=== PATIENT | female | born 1940 | race Caucasian/White ===

== ENCOUNTER 2016-08-12 13:48 | Outpatient (CLI) | payer OTHER ==
--- NOTE | 2016-08-12 17:13 | DIAGNOSTIC IMAGING REPORT ---
PROCEDURE: US ART LOWER EXT WITH BENIGNO-B/L INDICATION: CLAUDICATION TECHNIQUE: Color Doppler duplex imaging of the lower extremity arterial system was performed bilaterally. Pre and post exercise ABIs were acquired. COMPARISON: None. FINDINGS: The patient performed 50 toe raises RIGHT LOWER EXTREMITY: ABIs: Pre exercise posterior tibial: 190 Pre exercise dorsalis pedis: 190 Postexercise posterior tibial: 205 Postexercise dorsalis pedis: 200 VESSELS/ WAVEFORMS: Triphasic RIGHT LOWER EXTREMITY PEAK SYSTOLIC VELOCITIES: External iliac: 160.4 cm/second. Common femoral artery: 138.7 cm/second. Profunda femoral artery: 114.6 cm/second. Proximal superficial femoral artery: 108 point a cm/second. Mid superficial femoral artery: 112.3 cm/second. Distal superficial femoral artery: 106.5 cm/second. Popliteal artery: 74.5 cm/second. Proximal posterior tibial artery: 93.3 cm/second. Proximal anterior tibial artery: 110.4 cm/second. Distal posterior tibial artery: 89.7 cm/second. Dorsalis pedis artery: 79.9 cm/second. LEFT LOWER EXTREMITY: ABIs: Pre exercise posterior tibial: 200 Pre exercise dorsalis pedis: 190 Postexercise posterior tibial: 205 Postexercise dorsalis pedis: 210 VESSELS/ WAVEFORMS: Triphasic LEFT LOWER EXTREMITY PEAK SYSTOLIC VELOCITIES: External iliac: 105.6 cm/second. Common femoral artery: 149.1 cm/second. Profunda femoral artery: 79.9 cm/second. Proximal superficial femoral artery: 161.5 cm/second. Mid superficial femoral artery: 139.4 cm/second. Distal superficial femoral artery: 107.7 cm/second. Popliteal artery: 116.9 cm/second. Proximal posterior tibial artery: 120.4 cm/second. Proximal anterior tibial artery: 95.1 cm/second. Distal posterior tibial artery: 85.2 cm/second. Dorsalis pedis artery: 114.6 cm/second. IMPRESSION: 1. Normal, minimal plaque
== END 2016-08-12 23:00 ==
LOC: US SRH 13:48
DX: I70.213 Atherosclerosis of native arteries of extremities with intermittent claudication, bilateral legs (principal)

== ENCOUNTER 2016-11-01 23:05 | Inpatient (IN) | payer OTHER ==
[~2016-11-01] VITALS: Ht 172.7 cm; Wt 106.7 kg
--- NOTE | 2016-11-02 00:12 | DIAGNOSTIC IMAGING REPORT ---
PROCEDURE: XR ABD SERIES 2V ABD/1V CHEST INDICATION: CONSTIPATION TECHNIQUE: AP supine and upright views with PA view chest. COMPARISON: Compared to chest x-ray on 09/03/2015. FINDINGS: ABDOMEN: There is moderate distention of the right colon with probable subdiaphragmatic colonic interposition (versus free air). Soft tissues and osseous structures are normal. CHEST: Mild to moderate basilar atelectasis. Mid and upper lungs are clear. Heart and mediastinum are normal. Thorax is normal. IMPRESSION: 1. Moderate distention of the right colon with probable subdiaphragmatic colon interposition. Consider volvulus or subdiaphragmatic air (perforated viscus). 2. Mild to moderate bibasilar atelectasis. 3. Findings discussed with Dr. Argueta.
--- NOTE | 2016-11-02 00:47 | ED CLINICAL REPORT ---
Clinical Report - Physicians/Mid Levels [facility] [address] [place] [address] 11/01/2016 23:08 Patient: PURA WOODWARD Time Seen: 23:15. Arrived- By ambulance. Historian- patient, EMS personnel and family. HISTORY OF PRESENT ILLNESS Chief Complaint: ABDOMINAL PAIN. At its maximum, severity described as moderate. When seen in the E.D., severity described as moderate. Modifying factors- worsened by movement. Relieved by rest. It is described as "pain". No radiation. It is described as located in the right upper quadrant, epigastric area and left upper quadrant and in the upper abdomen. This started today and is still present. It was gradual in onset and has been waxing/waning. The patient has had nausea. No vomiting or diarrhea. Similar symptoms previously: None. Recent medical care: The patient was seen recently by a health care provider. Seen for other problems. Diagnosis: (recent hip surgery ([facility])). REVIEW OF SYSTEMS The patient has had constipation and back pain. No black stools, hematemesis, difficulty with urination, pain with urination or urinary frequency. No bloody stools, fever, headache, sore throat or blurred vision. No chest pain or difficulty breathing. Last bowel movement: yesterday. All systems otherwise negative, except as recorded above. PAST HISTORY Hypertension. SURGERY HX: Appendectomy. Dental surgery. Hysterectomy. Hiatal Hernia repair 2000 Bilateral hip surgery Upper extremity ORIF. SOCIAL HISTORY Never smoker. No drug use. ADDITIONAL NOTES The nursing notes have been reviewed. PHYSICAL EXAM Vital Signs: 11/01/2016 23:13 BP: 176/73. HR: 85. RR: 16. O2 saturation: 94%. Temp: 99.3 F. Appearance: Alert. Oriented X3. Patient in moderate distress. Eyes: Eyes normal inspection. No scleral icterus or pale conjunctivae. ENT: Pharynx normal. No pharyngeal erythema or tonsillar exudate. The mucous membranes are not dry. Neck: Normal inspection. Neck supple. CVS: Normal heart rate and rhythm. Cardiac murmur present. Pulses normal. Respiratory: No respiratory distress. Breath sounds normal. Chest nontender. Abdomen: Soft. Moderate tenderness in the upper abdomen, epigastric area and left upper quadrant. No Garcia's sign present. No mass. Back: Normal inspection. Skin: Skin warm and dry. Normal skin color. Normal skin turgor. Extremities: Extremities exhibit normal ROM. No calf tenderness. Neuro: Oriented X 3. No motor deficit. No sensory deficit. LABS, X-RAYS, AND EKG Chest X-ray: (IMPRESSION: 1. Moderate distention of the right colon with probable subdiaphragmatic colon interposition. Consider volvulus or subdiaphragmatic air (perforated viscus). 2. Mild to moderate bibasilar atelectasis. 3. Findings discussed with Dr. Argueta.). Views: PA. Technique: good. The X-rays were interpreted by the radiologist and contemporaneously by me. The X-rays were discussed with the radiologist (Dr. Forman). KUB: (IMPRESSION: 1. Moderate distention of the right colon with probable subdiaphragmatic colon interposition. Consider volvulus or subdiaphragmatic air (perforated viscus). 2. Mild to moderate bibasilar atelectasis. 3. Findings discussed with Dr. Argueta.). Views: two-view AP. Technique: good. The X-rays were interpreted by the radiologist and contemporaneously by me. The X-rays were discussed with the radiologist (Dr Forman). Abdominal CT: IMPRESSION: 1. Moderate inflammatory change of the body and tail the pancreas compatible with pancreatitis. 2. Associated local ileus and small amount of ascites. 3. 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 4. Mild sigmoid diverticulosis, but no evidence of diverticulitis. 5. Status post bilateral total hip prosthesis. 6. Status post hysterectomy. 7. Mild basilar atelectasis. Abdominal Sonogram: Multiple gallstones are present. Gallbladder wall thickening is present (3.8mm). No pericholecystic fluid or dilated common duct. The study was independently viewed by me and interpreted by the radiologist. The study was discussed with the radiologist (via tech). Laboratory Tests: CBC w Diff: (DEVAUGHN: 11/01/2016 23:20) ( MsgRcvd 11/01/2016 23:30) Final results Test Result Flag Units (Reference) WHITE BLOOD COUNT 11.5 K/uL (4.5-11.5) RED BLOOD COUNT 4.52 M/uL (4.00-5.20) HEMOGLOBIN 13.2 gm/dL (12.0-16.0) HEMATOCRIT 40.7 % (36.0-46.0) MEAN CELL VOLUME 90 fL (80-100) MEAN CORPUSCULAR HGB 29 pg (26-34) MEAN CORPUSCULAR HGB CONC 33 g/dL (31-37) RED CELL DISTRIBUTION WIDTH 13.5 % (11.6-14.8) PLATELET COUNT 345 K/uL (150-400) LYMPH % 15.3 L % (25-40) MONO % 3.1 % (3-14) GRANULOCYTE % 81.6 (53-90) BNP: (DEVAUGHN: 11/01/2016 23:20) ( [facility] 11/01/2016 23:47) Final results Test Result Flag Units (Reference) B-TYPE NATRIURETIC PEPTIDE 114 H pg/ml (5-100) Lipase: (DEVAUGHN: 11/01/2016 23:20) ( [facility] 11/01/2016 23:46) Final results Test Result Flag Units (Reference) LIPASE 4386 H U/L (73-393) AMYLASE 867 H U/L (25-115) CHEM 13 PANEL: (DEVAUGHN: 11/01/2016 23:20) ( [facility] 11/01/2016 23:46) Final results Test Result Flag Units (Reference) GLUCOSE 125 H mg/dL (70-110) BUN 13 mg/dL (7-18) CREATININE 0.7 mg/dL (0.6-1.3) Estimated GFR >60 mL/min Estimated GFR- >60 mL/min Note: Persistent reduction over 3 months in eGFR<60 mL/min/1.73 m2 defines CKD. Patients with eGFR values>=60 mL/min/1.73 m2 may also have CKD if evidence ofpersistent proteinuria. Additional information may be foundat www.kidney.org. SODIUM 135 L mmol/L (136-145) POTASSIUM 4.0 mmol/L (3.5-5.1) CHLORIDE 100 mmol/L (98-107) CARBON DIOXIDE 24 mmol/L (21-32) CALCIUM 9.1 mg/dL (8.5-10.1) TOTAL PROTEIN 7.2 g/dL (6.4-8.2) ALBUMIN 3.5 g/dL (3.3-5.0) BILIRUBIN, TOTAL 0.4 mg/dL (0.0-1.0) ALKALINE PHOSPHATASE 146 H U/L (46-116) AST (SGOT) 17 U/L (15-37) ALT (SGPT) 24 U/L (12-78) MAGNESIUM 1.7 L mg/dL (1.8-2.4) CPK 32 U/L (24-260) TROPONIN I <0.05 L ng/mL (0.00-1.5) TROPONIN REFERENCE RANGE:<0.1 NEGATIVE0.1-1.5 INDETERMINANT>1.5 POSITIVE . Pulse Oximetry: 11/01/2016 23:13 O2 saturation: 94%. (FIO2 - room air). Interpretation: hypoxemia. PROGRESS AND PROCEDURES Course of Care: Normal Saline 1 liter IVPB given. Zofran 4 mg IVP given. Dilaudid 0.5 mg IVP given. Patient is stable. Physical exam findings are improved. Symptoms better. Pt with pancreatitis and multiple gallstones. She will be admitted. Discussed case with hospitalist, (Kostas call returned 00:53). Reviewed test results. Agreed upon treatment plan and decision to admit. Health care provider will see patient in ED. Discussed case with on-call health care provider, (Denisha call placed 00:55 call returned 00:55). Reviewed test results. Agreed upon treatment plan and decision to admit. Patient/family counseled. Old ED records reviewed. Transition orders written. Disposition: Admitted to Acute Care. Condition: guarded and improved. CLINICAL IMPRESSION Biliary colic. Acute pancreatitis. Constipation. Recent hip replacement surgery. (Electronically signed by Niles Argueta DO 11/02/2016 2:15)
--- NOTE | 2016-11-02 00:48 | ED NURSING NOTES ---
Clinical Report - Nurses [facility] [address] [place] [address] 11/01/2016 23:08 Patient: PURA WOODWARD TRIAGE Triage time 23:11. Chief Complaint: ABDOMINAL PAIN and CONSTIPATION. --23:18 Jose Young R.N. 23:13 11/01/16. BP: 176/73. HR: 85. RR: 16. O2 saturation: 94%. Temp: 99.3 F. Pain level now 03/11. --23:18 Jose Young R.N. Weight: 86.5 kg estimated. Height/Length: 68 inches Estimated. BMI: 29. --02:01 Lukas Forbes R.N. Medications The following entry was struck by Lukas Forbes R.N., 01:58 (11/02/16) Reason - other. <<STRICKEN ENTRY-- Sulfa. --23:15 Jose Young R.N. --END STRIKE>>. Allergies Sulfa Antibiotics. --01:58 Lukas Forbes R.N. History Arrived by EMS. Historian: EMS (Patient). Accompanied by (Grandson). This started today. She has had constipation. PAST MEDICAL HX: Gastroesophageal reflux disease (Hiadal hernia repair). Immunizations: up-to-date. Denies current . SURGERY HX: Hernia repair (hiadal). Right and left hip surgery. Had hysterectomy. SOCIAL HX: Never smoker. --23:18 Jose Young R.N. PHYSICAL ASSESSMENT 23:27. To room via stretcher. Patient gowned. GENERAL / NEURO / PSYCH: Alert. Oriented X 4. HEENT: Mucous membranes are pink. RESPIRATORY: Respirations not labored. SKIN: Skin is warm and dry. --23:30 Lukas Forbes R.N. NURSING PROGRESS NOTES 23:19 11/01/2016 Site #1 started via IV in the left antecubital space with an 20g angiocath using intra-dermal lidocaine, with good blood return; one attempt. Blood drawn: rainbow set. Labeled in the presence of the patient and sent to the lab. Saline lock flushed with 10 mL saline. --23:24 Lukas Forbes R.N. 23:27. Head of bed elevated. Two patient identifiers checked. Call light placed in reach. Side rails up x 1. Bed placed in lowest position. Brakes of bed on. Patient ready for evaluation- chart flagged. --23:31 Lukas Forbes R.N. 23:29 11/01/2016 Started bag #1 1000 mL IV Fluids IV NS (Saline); at 1000 mL/hr over 30 minute(s) via site #1 --23:31 Lukas Forbes R.N. 23:31 11/01/2016 Zofran (Ondansetron HCl) IVP 4 mg given over 2 minute(s) via site #1. Allergies verified and confirmed 5 rights. IV patency established. IV site checked: no pain, redness, or swelling. IV flushed thoroughly pre- and post-medication administration. --23:32 Lukas Forbes R.N. 23:29 Patient reports unable to void. --23:34 Lukas Forbes R.N. 23:41. Patient transported to radiology by stretcher with tech. --23:41 Lukas Forbes R.N. 00:02 semiconductor processing technician with pt for exam. --00:04 Lukas Forbes R.N. 00:28. Patient transported to CT by stretcher with tech. --00:40 Lukas Forbes R.N. 00:38. Patient returned from CT by stretcher with tech. --00:40 Lukas Forbes R.NSalbador 00:40 Patient assisted onto BSC to provide urine sample. --00:41 Lukas Forbes R.N. 00:45. Patient ID band checked for patient name and birthdate: patient confirmed. Clean catch urine collected with return of yellow-colored clear urine; sample sent to lab for urinalysis. Specimen labeled in the presence of the patient. --00:48 Lukas Forbes R.N. 00:46 Clean depends provided to pt at her request. --00:48 Lukas Forbes R.N. 23:49. Patient returned from radiology by stretcher with tech. --00:04 Lukas Forbes R.N. 00:50 11/02/16. BP: 165/76. HR: 78. RR: 17. O2 saturation: 98% on room air. Pain level now: 02/08. --00:51 Lukas Forbes R.N. 00:50. The patient is calm and resting quietly. SKIN: Skin is warm and dry. Skin color within normal limits. --00:51 Lukas Forbes R.N. 01:03 Dr. Kenyon with patient for exam. --01:03 Lukas Forbes R.N. 00:35 11/02/2016 IV Fluids IV NS Discontinued: bag #1 infused. Total amount infused: 1000 mL. IV patency established. IV site checked: no pain, redness, or swelling. IV flushed thoroughly. --01:15 Lukas Forbes R.N. 01:00 11/02/2016 Dilaudid (HYDROmorphone HCl PF) IVP 0.5 mg given over 2 minute(s) via site #1. Allergies verified, confirmed 5 rights and sedative warning given to the patient and patient's family. IV patency established. IV site checked: no pain, redness, or swelling. IV flushed thoroughly pre- and post-medication administration. --01:04 Lukas Forbes R.N. 01:19. The patient is calm and resting quietly. SKIN: Skin is warm and dry. Skin color within normal limits. --01:19 Lukas Forbes R.N. EKG time: (145). EKG was ordered, performed by a tech and shown to the ED physician. --01:47 Mary Silva. DISPOSITION / DISCHARGE Condition at departure: stable. No learning barriers present. Admitted to Acute Care. Transported via stretcher by [employer]. Patient's personal items include: glasses, Other belongings, pt's son bringing in C-pap machine; items were placed in belongings bag and transported with the patient. She did not have contacts, dentures or a hearing aid. FALL RISK ASSESSMENT: Fall risk assessment completed. No fall risk identified. --01:19 Lukas Forbes R.N. 01:14 11/02/16. BP: 156. HR: 74. RR: 16. O2 saturation: 94% on room air. Pain level now: 12/09. --01:19 Lukas Forbes R.N. 01:14 11/02/16. BP: 156/80. --01:39 Lukas Forbes R.N. 01:39. Report was given via a phone call. Report included patient's care, treatment, medications, reviewed medication reconcilliation, and condition (including any recent changes or anticipated changes). All questions were answered. Report was acknowledged. (Marie Crockett CCU). --01:39 Lukas Forbes R.N. Departure time: 01:47. --01:56 Lukas Forbes R.N. Locked/Released at 11/02/2016 2:04 by Lukas Forbes R.N.
--- NOTE | 2016-11-02 00:48 | ED ORDER SUMMARY ---
..... Patient: PURA WOODWARD OrderSheet [facility] VisitID: [id number] [address] [place] [address] 76y, F Registration Date/Time: 11/01/2016 ORDER SHEET Weight: 86.5 kg (estimated) Allergies: Sulfa Antibiotics GENERAL ORDERS: Abd Series 2V Abd/1V Chest Urgent (23:17 11/01/2016 [facility]) (Ack 23:22 SRedmond) (23:55 RFay) UA-Culture if indicated Urgent (23:17 11/01/2016 [facility] DO) (Ack 23:22 SRedmond) (0:57 JQuivey R.N.) [facility] (Ack 23:22 SRedmond) (23:24 JQuivey R.N.) Lipase Urgent (23:11/01/2016 [facility]) (Ack 23:22 SRedmond) (23:24 JQuivey R.N.) Cardiac Panel Stat (23:17 11/01/2016 [facility] DO) (Ack 23:22 SRedmond) (23:24 JQuivey R.N.) Urine Drug Screen Urgent (23:17 11/01/2016 [facility]) (Ack 23:22 SRedmond) (0:57 JQuivey R.N.) BNP Urgent (23:17 11/01/2016 [facility]) (Ack 23:22 SRedmond) (23:24 JQuivey R.N.) NPO (23:17 11/[facility]) (Ack 23:22 SRedmond) (23:24 JQuivey R.N.) US Abdomen Limited (No) Urgent (23:25 11/01/2016 [facility]) (Ack 23:27 SRedmond) (0:19 RFay) CT Abd/Pel w Cont (No) (see lab) Urgent (00:10 11/02/2016 [facility]) (Ack 0:11 SRedmond) (0:31 RFay) Call (Place call to): (Denisha) (00:54 11/02/2016 [facility]) (0:57 SRedmond) MEDICATION ORDERS: - (Fleets enema (oil then water based)) (23:30 11/01/2016 [facility]) (Ack 23:33 JQuivey R.N.) (Cancelled: Other0:32 [facility]) Magnesium Citrate PO 300 mL (NOW) (23:31 11/01/2016 [facility]) (Ack 23:33 JQuivey R.N.) (Cancelled: Other0:32 [facility]) IV FLUIDS: IV NS : initial bolus 500 mL (1000 mL/hr), then 500 mL/hr for X1 (NOW) (23:17 11/01/2016 [facility]) (Ack 23:24 JQuivey R.N.) (23:31 JQuivey R.N.) Zofran IV 4 mg (NOW) (23:17 11/01/2016 [facility]) (Ack 23:24 JQuivey R.N.) (23:32 JQuivey R.N.) Dilaudid IV 0.5 mg (HIGH ALERT MEDICATION, NOW) (00:57 11/02/2016 [facility]) (Ack 0:58 JQuivey R.N.) (1:04 JQuivey R.N.) ORDER SHEET NOTES: [Electronically signed by Lukas Forbes R.N. (02:04 11/02/2016)] [Electronically signed by Niles Argueta DO (02:15 11/02/2016)] [Electronically locked/signed by Lukas Forbes R.N. (02:04 11/02/2016)]
--- NOTE | 2016-11-02 00:48 | ED ORDER SUMMARY ---
..... Patient: PURA WOODWARD OrderSheet [facility] VisitID: [id number] [address] [place] [address] 76y, F Registration Date/Time: 11/01/2016 ORDER SHEET Weight: 86.5 kg (estimated) Allergies: Sulfa Antibiotics GENERAL ORDERS: Abd Series 2V Abd/1V Chest Urgent (23:17 11/01/2016 [facility]) (Ack 23:22 SRedmond) (23:55 RFay) UA-Culture if indicated Urgent (23:17 11/01/2016 [facility] DO) (Ack 23:22 SRedmond) (0:57 JQuivey R.N.) Amylase [facility] (23:11[facility]01/[facility] (Ack 23:22 SRedmond) (23:24 JQuivey R.N.) Lipase Urgent (23:11/01/2016 [facility]) (Ack 23:22 SRedmond) (23:24 JQuivey R.N.) Cardiac Panel Stat (23:17 11/01/2016 [facility] DO) (Ack 23:22 SRedmond) (23:24 JQuivey R.N.) Urine Drug Screen Urgent (23:17 11/01/2016 [facility]) (Ack 23:22 SRedmond) (0:57 JQuivey R.N.) BNP Urgent (23:17 11/01/2016 [facility]) (Ack 23:22 SRedmond) (23:24 JQuivey R.N.) NPO (23:17 11/01/2016 [facility]) (Ack 23:22 SRedmond) (23:24 JQuivey R.N.) US Abdomen Limited (No) Urgent (23:25 11/01/2016 [facility]) (Ack 23:27 SRedmond) (0:19 RFay) CT Abd/Pel w Cont (No) (see lab) Urgent (00:10 11/02/2016 [facility]) (Ack 0:11 SRedmond) (0:31 RFay) Call (Place call to): (Denisha) (00:54 11/02/2016 [facility]) (0:57 SRedmond) MEDICATION ORDERS: - (Fleets enema (oil then water based)) (23:30 11/01/2016 [facility]) (Ack 23:33 JQuivey R.N.) (Cancelled: Other0:32 [facility]) Magnesium Citrate PO 300 mL (NOW) (23:31 11/01/2016 [facility]) (Ack 23:33 JQuivey R.N.) (Cancelled: Other0:32 [facility]) IV FLUIDS: IV NS : initial bolus 500 mL (1000 mL/hr), then 500 mL/hr for X1 (NOW) (23:17 11/01/2016 [facility]) (Ack 23:24 JQuivey R.N.) (23:31 JQuivey R.N.) Zofran IV 4 mg (NOW) (23:17 11/01/2016 [facility]) (Ack 23:24 JQuivey R.N.) (23:32 JQuivey R.N.) Dilaudid IV 0.5 mg (HIGH ALERT MEDICATION, NOW) (00:57 11/02/2016 [facility]) (Ack 0:58 JQuivey R.N.) (1:04 JQuivey R.N.) ORDER SHEET NOTES: [Electronically signed by Lukas Forbes R.N. (02:04 11/02/2016)] [Electronically signed by Niles Argueta DO (02:15 11/02/2016)] [Electronically locked/signed by Lukas Forbes R.N. (02:04 11/02/2016)]
--- NOTE | 2016-11-02 00:51 | DIAGNOSTIC IMAGING REPORT ---
PROCEDURE: US ABDOMEN ULTRASOUND-LIMITED INDICATION: Right upper quadrant pain. TECHNIQUE: Shepherd scale and color Doppler sonographic images of the abdomen were obtained. COMPARISON: None. FINDINGS: Gallbladder is packed with gallstones with moderate gallbladder wall thickening (4 mm). Common bile duct is obscured by bowel gas. Portions of the aorta, liver, and right kidney are seen, and are normal. IMPRESSION: 1. Cholelithiasis (gallbladder packed with gallstones). Associated gallbladder wall thickening suggest cholecystitis (acute versus chronic). 2. Common duct obscured by bowel gas. 3. Findings discussed with Dr. Argueta.
--- NOTE | 2016-11-02 00:51 | DIAGNOSTIC IMAGING REPORT ---
PROCEDURE: CT ABD/PELVIS WITH CONTRAST INDICATION: Right abdominal pain. TECHNIQUE: 125 ml of Isovue 300 were injected intravenously and axial images were obtained of the entire abdomen and pelvis with sagittal and coronal reformations. COMPARISON: Comparison made abdominal radiographs and abdominal ultrasound earlier in the day (11/02/2016). FINDINGS: ABDOMEN: There are moderate inflammatory changes of the body and tail the pancreas. Head of the pancreas appears normal. Associated local ileus and a small amount of ascites. No evidence of biliary dilation. Moderate distention and rotation of the cecum (cecal bascule). Associated right colon subdiaphragmatic interposition (incidental finding). No evidence of free air. Appendix is not identified, but no evidence of inflammatory process. There are lipomatous changes in the esophageal epigastric region with small amount of ascites. Gallbladder, liver spleen, kidneys, and aorta are normal. Mild basilar atelectasis. Mild levoscoliosis and moderate degenerative changes of the lumbar spine. PELVIS: Status post hysterectomy. Moderate sigmoid diverticulosis. Bilateral total hip prostheses with metal artifact (obscures some detail). No evidence of free fluid. IMPRESSION: 1. Moderate inflammatory change of the body and tail the pancreas compatible with pancreatitis. 2. Associated local ileus and small amount of ascites. 3. 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 4. Mild sigmoid diverticulosis, but no evidence of diverticulitis. 5. Status post bilateral total hip prosthesis. 6. Status post hysterectomy. 7. Mild basilar atelectasis. 8. Findings as with Dr. Argueta. All CT scans at this facility use dose modulation, iterative reconstruction, and/or weight-based dosing when appropriate to reduce radiation dose to as low as reasonably achievable.
[2016-11-02 02:10] VITALS: BP 159/67
--- NOTE | 2016-11-02 02:16 | ED MED RECONCILIATION SUMMARY ---
Patient: PURA WOODWARD Medication Reconciliation Report [facility] VisitID: [id number] [address] [place] [address] 76y, F Registration Date/Time: 11/01/2016 Weight: 86.5 kg Height/Length: 68 in. BMI: 29.0 ALLERGIES: Sulfa Antibiotics The patient's Home Medications are listed below: Not obtained. The source(s) of the original Home Medication information: Not obtained. The following Medications were given to the patient in the Emergency Department: IV NS IV Fluids bolus 0, then 1000 mL/hr, administered: 11/01/2016 11:29:00 PM Zofran [IVP] IVP 4 mg, administered: 11/01/2016 11:31:00 PM Dilaudid [IVP] IVP 0.5 mg, administered: 11/02/2016 1:00:00 AM The following Medications were prescribed to the patient: None.
--- NOTE | 2016-11-02 02:16 | ED MAR SUMMARY ---
..... Medication Administration Record [facility] [address] [place] [address] Patient: PURA WOODWARD Visit ID: [id number] 76y, F Weight: 86.5 kg Height/Length: 68 in BMI: 29 ALLERGIES: Sulfa Antibiotics Start 23:29 11/01/2016 Lukas Forbes R.N., Stop 00:35 11/02/2016 Lukas Forbes R.N. Medication Administered: IV NS (SALINE), Dose: IV Fluids over 30 minute(s), Rate: 1000 mL/hr, Dispensed: 1000 mL bag, Site: #1 left AC. Medication Ordered: IV NS : initial bolus 500 mL (1000 mL/hr), then 500 mL/hr for X1 (NOW). Given 23:31 11/01/2016 Lukas Forbes R.N. Medication Administered: ZOFRAN [IVP] (ONDANSETRON HCL), Dose: 4 mg IVP over 2 minute(s), Site: #1 left AC. Medication Ordered: Zofran IV 4 mg (NOW). Given 01:00 11/02/2016 Lukas Forbes R.N. Medication Administered: DILAUDID [IVP] (HYDROMORPHONE HCL PF), Dose: 0.5 mg IVP over 2 minute(s), Site: #1 left AC. Medication Ordered: Dilaudid IV 0.5 mg (HIGH ALERT MEDICATION, NOW).
--- NOTE | 2016-11-02 02:16 | ED DISCHARGE INSTRUCTIONS ---
Patient: PURA WOODWARD General Instructions [facility] VisitID: [id number] [address] [place] [address] 76y, F Registration Date/Time: 11/01/2016 Biliary colic. Acute pancreatitis. Constipation. Recent hip replacement surgery. ADDITIONAL INFORMATION Pancreatitis The pancreas is an organ in the left upper abdomen that secretes digestive juices into the stomach. Pancreatitis is an inflammation of the pancreas. This may occur for various causes including heavy alcohol use, gall stone blockage of the outflow duct from the pancreas, certain medicines and viral illness. Sometimes the cause of pancreatitis cannot be found. Moderate to severe illness requires being treated in the hospital. Milder attacks of pancreatitis can be treated at home. Home Care: 1) Absolutely NO ALCOHOL. 2) Rest in bed or sit up in a chair until you feel better. 3) Eat small more frequent meals rather than a few large meals each day. 4) Follow a high protein, high carbohydrate, low fat diet. 5) If you were given medicine for pain or vomiting, take it as prescribed. Follow Up with your doctor or as directed by our staff for further evaluation. Get Prompt Medical Attention if any of the following occur: -- Continued or worsening pain in the abdomen -- Repeated vomiting: unable to keep down liquids -- Dizziness, weakness or fainting -- Vomiting blood or blood in the stool (black or red color) -- Fever over 100.4 F (38.0 C) -- Severe muscle cramps or seizure -- Trouble breathing or fast breathing (over 25 breaths/minute) -- Jaundice (yellow color of the skin or eyes) You have been given the following additional information: Pancreatitis (Electronically signed by Niles Argueta DO 11/02/2016 2:15)
--- NOTE | 2016-11-02 02:16 | ED MED RECONCILIATION SUMMARY ---
Patient: PURA WOODWARD Medication Reconciliation Report [facility] VisitID: [id number] [address] [place] [address] 76y, F Registration Date/Time: 11/01/2016 Weight: 86.5 kg Height/Length: 68 in. BMI: 29.0 ALLERGIES: Sulfa Antibiotics The patient's Home Medications are listed below: Not obtained. The source(s) of the original Home Medication information: Not obtained. The following Medications were given to the patient in the Emergency Department: IV NS IV Fluids bolus 0, then 1000 mL/hr, administered: 11/01/2016 11:29:00 PM Zofran [IVP] IVP 4 mg, administered: 11/01/2016 11:31:00 PM Dilaudid [IVP] IVP 0.5 mg, administered: 11/02/2016 1:00:00 AM The following Medications were prescribed to the patient: None.
--- NOTE | 2016-11-02 02:16 | ED DISCHARGE INSTRUCTIONS ---
Patient: PURA WOODWARD General Instructions [facility] VisitID: [id number] [address] [place] [address] 76y, F Registration Date/Time: 11/01/2016 Biliary colic. Acute pancreatitis. Constipation. Recent hip replacement surgery. ADDITIONAL INFORMATION Pancreatitis The pancreas is an organ in the left upper abdomen that secretes digestive juices into the stomach. Pancreatitis is an inflammation of the pancreas. This may occur for various causes including heavy alcohol use, gall stone blockage of the outflow duct from the pancreas, certain medicines and viral illness. Sometimes the cause of pancreatitis cannot be found. Moderate to severe illness requires being treated in the hospital. Milder attacks of pancreatitis can be treated at home. Home Care: 1) Absolutely NO ALCOHOL. 2) Rest in bed or sit up in a chair until you feel better. 3) Eat small more frequent meals rather than a few large meals each day. 4) Follow a high protein, high carbohydrate, low fat diet. 5) If you were given medicine for pain or vomiting, take it as prescribed. Follow Up with your doctor or as directed by our staff for further evaluation. Get Prompt Medical Attention if any of the following occur: -- Continued or worsening pain in the abdomen -- Repeated vomiting: unable to keep down liquids -- Dizziness, weakness or fainting -- Vomiting blood or blood in the stool (black or red color) -- Fever over 100.4 F (38.0 C) -- Severe muscle cramps or seizure -- Trouble breathing or fast breathing (over 25 breaths/minute) -- Jaundice (yellow color of the skin or eyes) You have been given the following additional information: Pancreatitis (Electronically signed by Niles Argueta DO 11/02/2016 2:15)
--- NOTE | 2016-11-02 02:16 | ED MAR SUMMARY ---
..... Medication Administration Record [facility] [address] [place] [address] Patient: PURA WOODWARD Visit ID: [id number] 76y, F Weight: 86.5 kg Height/Length: 68 in BMI: 29 ALLERGIES: Sulfa Antibiotics Start 23:29 11/01/2016 Lukas Forbes R.N., Stop 00:35 11/02/2016 Lukas Forbes R.N. Medication Administered: IV NS (SALINE), Dose: IV Fluids over 30 minute(s), Rate: 1000 mL/hr, Dispensed: 1000 mL bag, Site: #1 left AC. Medication Ordered: IV NS : initial bolus 500 mL (1000 mL/hr), then 500 mL/hr for X1 (NOW). Given 23:31 11/01/2016 Lukas Forbes R.N. Medication Administered: ZOFRAN [IVP] (ONDANSETRON HCL), Dose: 4 mg IVP over 2 minute(s), Site: #1 left AC. Medication Ordered: Zofran IV 4 mg (NOW). Given 01:00 11/02/2016 Lukas Forbes R.N. Medication Administered: DILAUDID [IVP] (HYDROMORPHONE HCL PF), Dose: 0.5 mg IVP over 2 minute(s), Site: #1 left AC. Medication Ordered: Dilaudid IV 0.5 mg (HIGH ALERT MEDICATION, NOW).
--- NOTE | 2016-11-02 02:35 | HISTORY AND PHYSICAL ---
ADMITTED: 11/02/2016 HISTORY OF PRESENT ILLNESS: A 76-year-old female with chief complaint of abdominal pain. The symptoms started around 12:30 this morning. The patient's pain is located in the epigastric area, radiating across the upper abdomen. She initially thought that her pain was due to constipation, so she took an enema, which did not help relieve her pain. She reports some nausea, but no vomiting. She denies having any previous similar episodes. No fever, no chills. No bleeding. No hematemesis, melena or hematochezia. She denies having any chest pain or palpitations. No cough, hemoptysis or shortness of breath. No leg edema. She recently had a right hip replacement and was recently taken off her oral narcotics and was switched over to Tylenol. The patient was seen in the emergency room where a workup showed an elevated lipase of 4000 and amylase was around 867. CAT scan showed evidence of pancreatitis with multiple gallstones in the gallbladder. There is also mild thickening of the gallbladder wall suspicious for cholecystitis. MEDICAL/SURGICAL HISTORY: Her past medical history is pertinent for a history of obstructive sleep apnea, urge incontinence, history of hypertension, which is currently controlled, history of gastroesophageal reflux disease. Past surgeries include a hiatal hernia, right hip surgery 3 weeks ago and left hip surgery a year ago, hysterectomy and appendectomy. CODE STATUS: FULL CODE. MEDICATIONS: 1. Tylenol p.r.n. pain. 2. She was previously oxygen on oxycodone for pain. 3. Desmopressin pill daily, dose unknown. ALLERGIES: 1. SULFA. SOCIAL HISTORY: She lives with her . No smoking. Rare alcohol use. No recreational drug use. FAMILY HISTORY: Heart disease in the mother, grandfather and 2 of her brothers. PHYSICAL EXAMINATION: GENERAL: Shows a well-developed, well-nourished female. VITAL SIGNS: Blood pressure 176/73, heart rate 85, respirations 16, O2 saturations 94%, temperature is 99.3. HEENT: She is normocephalic with pink conjunctivae. Anicteric. Pupils are reactive with moist oral mucosa. NECK: No JVD. No bruits. LUNGS: Clear. No rales, no wheezes, no rhonchi. CARDIOVASCULAR: Regular rate and rhythm. S1, S2 normal. She has a 3/6 systolic murmur radiating to the carotids and also a soft systolic murmur at the lower left sternal border about 2/6. ABDOMEN: Soft. There is tenderness in the epigastric area and some mild tenderness in the right upper quadrant. Negative Garcia sign. No guarding. No organomegaly. No bruits. BACK: No CVA tenderness. EXTREMITIES: No edema, no cyanosis. Full peripheral pulses. The surgical scar on the right hip is healing well without any discharge or tenderness around the surgical site. NEUROLOGIC: No lateralizing signs. No motor or sensory deficits. DTRs are +2. No Babinski, no clonus. LAB/IMAGING: Her labs show sodium 135, potassium 4, chloride 100, CO2 24, BUN of 13, creatinine 0.7, glucose 125. Magnesium 1.7, alkaline phosphatase 146, CK of 32, troponin less than 0.05. BNP 114. Total protein 7.2, albumin 3.5, hemoglobin 13.2, hematocrit 40.7, MCV of 90. WBC of 11.5, platelets 345, amylase 867, lipase 4386. Urine toxicology screen is negative. UA shows specific gravity 1.005, positive leukocyte esterase , WBC 15-25 with many bacteria. Her ultrasound shows cholelithiasis with some gallbladder wall thickening. Chest x-ray shows basilar atelectasis. Abdominal CT did not show any evidence of free air. There are some inflammatory changes in the body and tail of the pancreas compatible with pancreatitis and some evidence of ileus and diverticulosis, but no evidence of diverticulitis. IMPRESSION: 1. Gallstone pancreatitis 2. Probable urinary tract infection 3. Hypertension 4. Obstructive sleep apnea 5. History of recent right hip surgery 6. History of urge incontinence 7. Hypomagnesemia PLAN: Admit to inpatient. We will keep the patient n.p.o. We will hydrate with normal saline. We will give Dilaudid 1-2 mg IV 2 hours p.r.n. pain. Zofran for nausea. We will then place the patient on cefepime 2 grams IV q.12. We will consult surgery. We will place the patient on nitroglycerin paste 1 inch q.6 for blood pressure control. We will follow up on urine culture results. We will place the patient on subcutaneous Lovenox for deep venous thrombosis prophylaxis and Protonix for stress gastritis prophylaxis. The patient informed of the plan and she verbalized understanding.
[2016-11-02] MEDS ORDERED: DDAVP0.1 MG (03:04)
[2016-11-02] MEDS ORDERED: ACETAMINOPHEN325 MG PO (03:05)
[2016-11-02 06:26] VITALS: BP 148/58
--- NOTE | 2016-11-02 08:04 | Progress Note ---
Subjective General Note Date: November 02, 2016 Admission Date: November 02, 2016 Hospital Day: 1 PCP: Hu Mays M.D. Status: Inpatient Advanced Directive: Full Code Room: 303 Brief History: The patient is a 76-year-old white female with a significant past mental history of obstructive sleep apnea, urinary incontinence, hypertension, esophageal reflux, who presented to [facility] emergency room on the day of admission secondary to complaints of abdominal pain nausea but no vomiting. [facility] ER evaluation was consistent with gallstone pancreatitis and suspected cholecystitis. Secondary to the above, the patient was admitted by Thai Kenyon M.D. for further evaluation and treatment. For other history present illness, past medical history, family history, social history, review of systems, and admission physical examination please see the patient's history and physical examination and ER visit note in the patient's medical record. Subjective: The patient states she is doing somewhat better this a.m. Pain better controlled. No nausea or vomiting. Patient requests: None Medications and Allergies Medications Current Medications Sig/Tigist Start time Last Medication Dose Route Stop Time Status Admin Enoxaparin Sodium 40 MG DAILY 11/02 0900 AC SC Pantoprazole Sodium 40 MG DAILY@0600 11/02 0600 AC 11/02 IV 0503 Cefotetan Disodium/ 50 ML Q12H 11/02 0200 AC / Dextrose IV 0228 Nitroglycerin 1 GM Q6HR PRN 11/02 0145 AC TOP Hydromorphone HCl See Dose Q2H PRN 11/02 0130 AC 11/02 Insts (1) IV 0754 Ondansetron HCl 4 MG Q6H PRN 11/02 0130 IV Sodium Chloride 1,000 ML ASDIRECTED 11/02 0130 11/02 IV 0228 Dose Instructions: (1)Hydromorphone HCl: 0.5 - 1 MG Allergies Coded Allergies: Sulfa Antibiotics (11/02/16) Physical Exam Vital Signs / I&Os Vital Signs Date Time Temp Pulse Resp B/P Pulse O2 O2 Flow FiO2 Ox Delivery Rate 11/02 0626 98.4 70 19 148/58 96 Room Air 11/02 0210 98.1 66 20 159/67 94 Room Air General Appearance Alert, Oriented X3, Cooperative, No acute distress Lungs Clear to auscultation, Normal air movement Cardiovascular Regular rate and rhythm, Normal S1 and S2, 2/6 systolic murmur Abdomen Normal bowel sounds, Soft, epigastric/right upper quadrant tenderness- mild to moderate Extremities No cyanosis, No clubbing Neurological Cranial nerves intact, No lateralizing signs Psych/Mental Status Mental status normal, Mood normal LAB Results Laboratory Tests 11/02 11/02 11/01 11/01 0435 0045 2320 2320 Chemistry Plasma Sodium (136 - 145 mmol/L) 141 Plasma Potassium (3.5 - 5.1 mmol/L) 4.1 Plasma Chloride (98 - 107 mmol/L) 105 CO2 (Enzymatic) (21 - 32 mmol/L) 27 BUN (7 - 18 mg/dL) 11 Creatinine (0.6 - 1.3 mg/dL) 0.7 Est GFR ( Amer) (mL/min) >60 Est GFR (Non-Af Amer) (mL/min) >60 Glucose (70 - 110 mg/dL) 101 Plasma Calcium (8.5 - 10.1 mg/dL) 9.0 Total Bilirubin (0.0 - 1.0 mg/dL) 0.3 AST (15 - 37 U/L) 12 ALT (12 - 78 U/L) 19 Alkaline Phosphatase (46 - 116 U/L) 133 B-Natriuretic Peptide (5 - 100 pg/ml) 114 Total Protein (6.4 - 8.2 g/dL) 6.2 Albumin (3.3 - 5.0 g/dL) 3.2 Triglycerides (30 - 200 mg/dL) 49 Cholesterol (140 - 200 mg/dL) 191 LDL Cholesterol, Calc (mg/dL) 118 HDL Cholesterol (32 - 96 mg/dL) 64 LDL/HDL Ratio 1.8 Cholesterol/HDL Ratio 3.0 Coronary Risk Interp (0.4 - 1.0) 0.6 Amylase (25 - 115 U/L) 867 Lipase (73 - 393 U/L) 3296 4386 Hematology WBC (4.5 - 11.5 K/uL) 8.8 RBC (4.00 - 5.20 M/uL) 4.15 Hgb (12.0 - 16.0 gm/dL) 12.1 Hct (36.0 - 46.0 %) 36.8 MCV (80 - 100 fL) 89 MCH (26 - 34 pg) 29 RDW (11.6 - 14.8 %) 14.4 Neut % (Auto) (50 - 75 %) 60.4 Lymph % (Auto) (25 - 40 %) 29.2 Ballard % (Auto) (3 - 14 %) 8.8 Eos % (Auto) (0 - 4 %) 1.1 Baso % (Auto) (0 - 2 %) 0.5 Plt Count, EDTA (150 - 400 K/uL) 345 PUBS MCHC (31 - 37 g/dL) 33 Toxicology Urine Opiates Screen (NEGATIVE) NEGATIVE Urine Methadone Screen (NEGATIVE) NEGATIVE Ur Barbiturates Screen (NEGATIVE) NEGATIVE U Amphetamin/Meth Scrn (NEGATIVE) NEGATIVE MDMA (Ecstasy) Screen (NEGATIVE) NEGATIVE U Benzodiazepines Scrn (NEGATIVE) NEGATIVE Urine Cocaine Screen (NEGATIVE) NEGATIVE U Cannabinoids Screen (NEGATIVE) NEGATIVE Urines Urine Color YELLOW Urine Appearance CLEAR Urine pH (5.0 - 8.0) 7.0 Ur Specific [place] (1.010 - 1.030) <= 1.005 Urine Protein (NEGATIVE) NEGATIVE Urine Ketones (NEGATIVE) NEGATIVE Urine Blood (NEGATIVE) NEGATIVE Urine Nitrite (NEGATIVE) POSITIVE Urine Bilirubin (NEGATIVE) NEGATIVE Urine Urobilinogen (0.2 - 1.0 EU/dL) 0.2 Ur Leukocyte Esterase (NEGATIVE) POSITIVE Urine RBC (0 - 1 rbc/hpf) 0-1 Urine WBC (0 - 1 wbc/hpf) 15-25 Ur Epithelial Cells (0 - 5 EPI/hpf) 0-1 Urine Bacteria (NONE SEEN) MANY (4+) Urine Glucose (NEGATIVE) NEGATIVE Urine Comment CULTURE INDICATED 11/01 2320 Chemistry Plasma Sodium (136 - 145 mmol/L) 135 Plasma Potassium (3.5 - 5.1 mmol/L) 4.0 Plasma Chloride (98 - 107 mmol/L) 100 CO2 (Enzymatic) (21 - 32 mmol/L) 24 BUN (7 - 18 mg/dL) 13 Creatinine (0.6 - 1.3 mg/dL) 0.7 Est GFR ( Amer) (mL/min) >60 Est GFR (Non-Af Amer) (mL/min) >60 Glucose (70 - 110 mg/dL) 125 Plasma Calcium (8.5 - 10.1 mg/dL) 9.1 Plasma Magnesium (1.8 - 2.4 mg/dL) 1.7 Total Bilirubin (0.0 - 1.0 mg/dL) 0.4 AST (15 - 37 U/L) 17 ALT (12 - 78 U/L) 24 Alkaline Phosphatase (46 - 116 U/L) 146 Creatine Kinase (24 - 260 U/L) 32 Troponin (0.00 - 1.5 ng/mL) <0.05 Total Protein (6.4 - 8.2 g/dL) 7.2 Albumin (3.3 - 5.0 g/dL) 3.5 Hematology WBC (4.5 - 11.5 K/uL) 11.5 RBC (4.00 - 5.20 M/uL) 4.52 Hgb (12.0 - 16.0 gm/dL) 13.2 Hct (36.0 - 46.0 %) 40.7 MCV (80 - 100 fL) 90 MCH (26 - 34 pg) 29 RDW (11.6 - 14.8 %) 13.5 Gran % (53 - 90) 81.6 Lymph % (Auto) (25 - 40 %) 15.3 Ballard % (Auto) (3 - 14 %) 3.1 Plt Count, EDTA (150 - 400 K/uL) 345 PUBS MCHC (31 - 37 g/dL) 33 Microbiology Date/Time Procedure - Status Source Growth 11/02 022 MRSA Screen - RECD NASAL 11/02 0045 Urine Culture - RECD URINE CC Imaging CT Scan Abdomen and Pelvis IMPRESSION: 1. Moderate inflammatory change of the body and tail the pancreas compatible with pancreatitis. 2. Associated local ileus and small amount of ascites. 3. 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 4. Mild sigmoid diverticulosis, but no evidence of diverticulitis. 5. Status post bilateral total hip prosthesis. 6. Status post hysterectomy. 7. Mild basilar atelectasis. 8. Findings as with Dr. Argueta. Dictated by: OYVANA LOVELL MD D: NITIN;11/02/16 0051 Echocardiogram IMPRESSION: Ejection fraction 50%. LVH Grade 1. Diastolic dysfunction Biatrial enlargement Elevated RVSP 52-mm Mild to moderate aortic stenosis valve area 1.36 cm2 mean gradient 20 degrees of 31 mmHg Mild aortic root enlargement measuring 3.7 cm Dictated by: ISAURO ABDULLAHI MD D: GISELLE;11/02/16 9681 Assessment and Plan Problem List 1. Acute gallstone pancreatitis Plan -Patient presents with findings of gallstone pancreatitis -Nothing by mouth -IV fluid therapy with pain control/antiemetics -Plan cholecystectomy prior to discharge -Monitor 2. Hypertension Status Chronic Onset Date Unknown Plan -Blood pressure elevated controlled -BP 140/58 mmHg -Continue outpatient medical regimen -Monitor -Low-salt diet when taking well orally 3. Obstructive sleep apnea Status Chronic Onset Date Unknown Plan -Stable -Continue CPAP -Monitor 4. Aortic stenosis, moderate Status Chronic Onset Date Unknown Plan -Patient with findings of mild-moderate aortic stenosis on echocardiogram -Associated LVH with diastolic dysfunction -Asymptomatic at this time. -Monitor. 5. Gastroesophageal reflux Status Chronic Onset Date Unknown Plan -Patient with history of gastroesophageal reflux -Protonix 40 mg IV daily -Monitor Current status: Fair, unstable Anticipated discharge date: Anticipated discharge in 4-5 days Anticipated discharge placement: Home Patient care time: Time spent in chart review, patient interview, physical exam, CPOE, and care documentation: 35 minutes Visit to patient today: 1 Complexity of care: Moderate-High E&M Codes Rounding: Inpt-High/[id number]
[2016-11-02 10:57] VITALS: BP 152/55
[2016-11-02 14:43] VITALS: BP 175/68
--- NOTE | 2016-11-02 16:09 | DIAGNOSTIC IMAGING REPORT ---
PROCEDURE: 2-D M-mode echo Doppler CLINICAL INDICATION: Heart murmur, preop TECHNIQUE: Standard COMPARISON: None available FINDINGS: The aortic valve exhibits calcification with mild to moderate aortic stenosis with a mean gradient of 28 a peak of 31 mmHg aortic valve area 1.36 cm2 no aortic insufficiency present. The mitral valve is normal configuration without stenosis or insufficiency the tricuspid valve exhibits 1+ TR with RVSP 52 the pulmonic is normal aortic root is mildly increased in size measuring 3.7 cm the pericardium is normal. LV contractility is normal with an ejection fraction of 50% . LVH present. grade 1 diastolic dysfunction present RV function is normal pressure is elevated at 52 mmHg RV size is normal. Biatrial enlargement present IMPRESSION: Ejection fraction 50%. LVH Grade 1. Diastolic dysfunction Biatrial enlargement Elevated RVSP 52-mm Mild to moderate aortic stenosis valve area 1.36 cm2 mean gradient 20 degrees of 31 mmHg Mild aortic root enlargement measuring 3.7 cm
[2016-11-02 18:36] VITALS: BP 159/65
[2016-11-02 22:30] VITALS: BP 161/65
[2016-11-03 02:38] VITALS: BP 171/63
[2016-11-03 06:55] VITALS: BP 168/76
[2016-11-03 10:32] VITALS: BP 158/69
--- NOTE | 2016-11-03 11:51 | Progress Note ---
Subjective General Pt. feels better, still sore in epigastrium. She would like to eat. Physical Exam Vital Signs / I&Os Vital Signs Date Time Temp Pulse Resp B/P Pulse O2 O2 Flow FiO2 Ox Delivery Rate 11/03 1032 99.3 81 16 158/69 96 Room Air 11/03 0753 Room Air 11/03 0655 99.9 86 16 168/76 93 Room Air 11/03 0238 99.9 80 14 171/63 93 CPAP 11/02 2230 99.7 93 14 161/65 90 CPAP 11/02 1950 Room Air 11/02 1836 102.4 89 16 159/65 94 11/02 1443 99.9 87 16 175/68 95 I&O 11/02 0800 11/02 1600 11/03 0000 Intake Total 181 1877 Output Total 1050 675 600 Balance -869 -675 1277 General Appearance Alert, Oriented X3, Cooperative, No acute distress HEENT Normal exam, PERRLA, no icterus Abdomen mild tenderness to palpation in the epigastrium. LAB Results Laboratory Tests 11/03 0510 Chemistry Plasma Sodium (136 - 145 mmol/L) 140 Plasma Potassium (3.5 - 5.1 mmol/L) 3.4 Plasma Chloride (98 - 107 mmol/L) 104 CO2 (Enzymatic) (21 - 32 mmol/L) 22 BUN (7 - 18 mg/dL) 14 Creatinine (0.6 - 1.3 mg/dL) 0.7 Est GFR ( Amer) (mL/min) >60 Est GFR (Non-Af Amer) (mL/min) >60 Glucose (70 - 110 mg/dL) 85 Plasma Calcium (8.5 - 10.1 mg/dL) 8.1 Total Bilirubin (0.0 - 1.0 mg/dL) 0.5 AST (15 - 37 U/L) 13 ALT (12 - 78 U/L) 14 Alkaline Phosphatase (46 - 116 U/L) 111 Total Protein (6.4 - 8.2 g/dL) 5.5 Albumin (3.3 - 5.0 g/dL) 2.6 Lipase (73 - 393 U/L) 349 Hematology WBC (4.5 - 11.5 K/uL) 11.3 RBC (4.00 - 5.20 M/uL) 3.76 Hgb (12.0 - 16.0 gm/dL) 11.0 Hct (36.0 - 46.0 %) 33.2 MCV (80 - 100 fL) 88 MCH (26 - 34 pg) 29 RDW (11.6 - 14.8 %) 14.0 Neut % (Auto) (50 - 75 %) 75 Lymph % (Auto) (25 - 40 %) 19 Butler % (Auto) (3 - 14 %) 6 Eos % (Auto) (0 - 4 %) 0 Baso % (Auto) (0 - 2 %) 0 Band Neutrophils % (0 - 8 %) 0 Metamyelocytes % (0 - 1 %) 0 Myelocytes (0 - 1 %) 0 Other Cell Type 0 Plt Count, EDTA (150 - 400 K/uL) 276 Anisocytosis (manual) 1+ PUBS MCHC (31 - 37 g/dL) 33 Assessment and Plan Problem List 1. Acute gallstone pancreatitis Plan pancreatitis has chemically resolved. Will set up to for lap antonino tommorow, I explained the alternatives, benefits and risks of surgery to the pt. including generic risks as well as risk of common duct injury, stones and post operative pancreatitis.
--- NOTE | 2016-11-03 12:40 | CONSULTATION REPORT ---
DATE OF CONSULTATION: 11/02/2016 CHIEF COMPLAINT: 1. Epigastric abdominal pain HISTORY OF PRESENT ILLNESS: The patient is a 76-year-old woman who presented to the emergency department with epigastric abdominal pain. This started at 12:30 in the morning and became worse. She was brought to the hospital and found to have evidence of gallstone pancreatitis on ultrasound and on laboratory testing. A CT scan showed multiple gallstones as well as evidence of pancreatitis. There is no history of jaundice or elevated bilirubin. The patient has not these symptoms before. MEDICAL/SURGICAL HISTORY: Obstructive sleep apnea, urinary urgency and incontinence, hypertension, GERD. Past surgeries: Hiatal hernia repair in 2000, appendectomy in 1956, left hip replacement in 2016, right hip replacement about 3 weeks prior to admission. She had a ASHOK, BSO in 1986. She had previous dental surgery. MEDICATIONS: Desmopressin, which she takes for urinary urgency at bedtime. ALLERGIES: 1. SULFA MEDICATIONS. 2. CERTAIN ANIMALS. 3. HAY. SOCIAL HISTORY: The patient is . She is a retired real estate sales supervisor. She does not smoke cigarettes. She takes occasional ethanol. FAMILY HISTORY: Mother had heart disease, grandfather and 2 of her brothers also had heart disease. REVIEW OF SYSTEMS: A multipoint review of systems was obtained which is pertinent for urinary urgency and environmental allergies. She denies other unrelated symptoms not mentioned in the HPI, in questions covering these 8 systems. PHYSICAL EXAMINATION: VITAL SIGNS: At time of admission, blood pressure is 176/73, heart rate of 85, respirations 16, O2 saturation 94%, temperature 99.3. HEENT: Her ears and nose demonstrate no gross external lesions. Eyes are equal. There is no icterus. NECK: Without palpable masses or thyromegaly. CHEST: Clear, without wheeze or rales. HEART: Regular. There is a systolic heart murmur, about 3/6, best heard in the left upper sternal border. Heart beat is regular. The heart murmur is transmitted in the carotids, but these do not sound like true bruits. ABDOMEN: She has epigastric pain to palpation and some localized guarding in the mid epigastrium. There is no specific subcostal tenderness. Bowel sounds are active. She is nondistended. There is no palpable hepatosplenomegaly or ascites. EXTREMITIES: Symmetric. She appears to move without restriction. She has a recently healed right hip surgical scar. LAB/IMAGING: Laboratory work was reviewed and as described in initial consultation. Lipase was 4386, amylase is 867, bilirubin was normal. White count was normal. IMPRESSION: 1. Gallstone pancreatitis 2. Cholelithiasis with chronic cholecystitis PLAN: I recommended that the patient continue with medical management while in the hospital. She can be observed until her laboratory tests return to normal. I explained to the patient that we will recommend a laparoscopic cholecystectomy prior to discharge in order to prevent recurrence of symptomatology and recurrent pancreatitis. She appeared to understand these considerations as well as the timing of surgery that I explained to her.
[2016-11-03 14:10] VITALS: BP 181/79
[2016-11-03 18:14] VITALS: BP 171/67
--- NOTE | 2016-11-03 18:28 | Progress Note ---
Subjective General Pt seen and examined. Patient is doing well without any complaints. Patient is resting comfortably and surgery will be scheduled for tomorrow. Constitutional Denies: Fever, Chills, Sweats, Weakness, Malaise, Other. Eyes Denies: Pain, Vision Change, Conjunctival Inflammation, Eyelid Inflammation, Redness, Other. ENT Denies: Ear Pain, Ear Discharge, Nose Pain, Nasal Discharge, Nasal Congestion, Mouth Pain, Mouth Swelling, Throat Pain, Throat Swelling, Other. Respiratory Denies: Cough, Dry, SOB w/exertion, Wheezing, Hemoptysis, Pleuritic Pain, Sputum , Other. Cardiovascular Denies: Chest Pain, Palpitations, Orthopnea, PND, Edema, Light-headedness, Other. Gastrointestinal Nausea, Abdominal Pain. Denies: Vomiting, Diarrhea, Constipation, Melena, Hematochezia, Other. Genitourinary Denies: Dysuria, Frequency, Incontinence, Hematuria, Retention, Other. Musculoskeletal Denies: Neck Pain, Shoulder Pain, Arm Pain, Back Pain, Hand Pain, Leg Pain, Foot Pain, Other. Skin Denies: Rash, Lesions, Jaundice, Bruising, Other. Neurological Denies: Weakness, Numbness, Incoordination, Change in speech, Confusion, Seizures, Other. Physical Exam Vital Signs / I&Os Vital Signs Date Time Temp Pulse Resp B/P Pulse O2 O2 Flow FiO2 Ox Delivery Rate 11/03 1814 102.4 92 20 171/67 99 04/ 1556 99.9 11/03 1410 100.6 93 20 181/79 95 Room Air 11/03 1032 99.3 81 16 158/69 96 Room Air 11/03 0753 Room Air 11/03 0655 99.9 86 16 168/76 93 Room Air 11/03 0238 99.9 80 14 171/63 93 CPAP 11/02 2230 99.7 93 14 161/65 90 CPAP 11/02 1950 Room Air 11/02 1836 102.4 89 16 159/65 94 I&O 11/02 0800 11/02 1600 11/03 0000 Intake Total 181 1877 Output Total 1050 795 600 Balance -866 -964 1277 General Appearance Alert, Oriented X3, No acute distress HEENT Atraumatic, PERRLA, Moist mucous membranes Lungs Clear to auscultation Neck Supple, No JVD, No masses Cardiovascular Normal S1 and S2, No murmurs, gallops, rubs Abdomen Soft, No tenderness Skin No Breakdown, No Significant Lesions Neurological Normal gait, Normal tone, Sensation intact, Cranial nerves intact, No lateralizing signs Psych/Mental Status Mood normal, Confused LAB Results Laboratory Tests 11/03 0510 Chemistry Plasma Sodium (136 - 145 mmol/L) 140 Plasma Potassium (3.5 - 5.1 mmol/L) 3.4 Plasma Chloride (98 - 107 mmol/L) 104 CO2 (Enzymatic) (21 - 32 mmol/L) 22 BUN (7 - 18 mg/dL) 14 Creatinine (0.6 - 1.3 mg/dL) 0.7 Est GFR ( Amer) (mL/min) >60 Est GFR (Non-Af Amer) (mL/min) >60 Glucose (70 - 110 mg/dL) 85 Plasma Calcium (8.5 - 10.1 mg/dL) 8.1 Total Bilirubin (0.0 - 1.0 mg/dL) 0.5 AST (15 - 37 U/L) 13 ALT (12 - 78 U/L) 14 Alkaline Phosphatase (46 - 116 U/L) 111 Total Protein (6.4 - 8.2 g/dL) 5.5 Albumin (3.3 - 5.0 g/dL) 2.6 Lipase (73 - 393 U/L) 349 Hematology WBC (4.5 - 11.5 K/uL) 11.3 RBC (4.00 - 5.20 M/uL) 3.76 Hgb (12.0 - 16.0 gm/dL) 11.0 Hct (36.0 - 46.0 %) 33.2 MCV (80 - 100 fL) 88 MCH (26 - 34 pg) 29 RDW (11.6 - 14.8 %) 14.0 Neut % (Auto) (50 - 75 %) 75 Lymph % (Auto) (25 - 40 %) 19 [place] % (Auto) (3 - 14 %) 6 Eos % (Auto) (0 - 4 %) 0 Baso % (Auto) (0 - 2 %) 0 Band Neutrophils % (0 - 8 %) 0 Metamyelocytes % (0 - 1 %) 0 Myelocytes (0 - 1 %) 0 Other Cell Type 0 Plt Count, EDTA (150 - 400 K/uL) 276 Anisocytosis (manual) 1+ PUBS MCHC (31 - 37 g/dL) 33 Assessment and Plan Problem List 1. Acute gallstone pancreatitis Plan -Patient presents with findings of gallstone pancreatitis -NPO -surgery is scheduled for tomorrow -c/w antibiotics -will continue to trend lfts and lipase 2. Hypertension Status Chronic Onset Date Unknown Plan -Blood pressure elevated controlled -BP 140/58 mmHg -Continue outpatient medical regimen -Monitor -Low-salt diet when taking well orally 3. Obstructive sleep apnea Status Chronic Onset Date Unknown Plan - will provide cpap for night time - no other managment needed 4. Gastroesophageal reflux Status Chronic Onset Date Unknown Plan -Patient with history of gastroesophageal reflux -Protonix 40 mg IV daily -Monitor
[2016-11-03 23:52] VITALS: BP 171/71
[2016-11-04] VITALS (7 sets, daily range): BP systolic 160–173; BP diastolic 70–78
[2016-11-04] MEDS ORDERED: NORCO1 TA1 PO (13:10)
--- NOTE | 2016-11-04 13:11 | Provider's Discharge Care Plan ---
Problem, Goal, Plan Problem List 1. Acute gallstone pancreatitis
--- NOTE | 2016-11-04 13:11 | Provider's Discharge Care Plan ---
Problem, Goal, Plan Problem List 1. Acute gallstone pancreatitis
--- NOTE | 2016-11-04 13:13 | DIAGNOSTIC IMAGING REPORT ---
PROCEDURE: XR INTRAOPERATIVE LAP HAYDEN INDICATION: IOC TECHNIQUE: Intraoperative fluoroscopy provided for intraoperative cholangiogram following cholecystectomy. Total fluoroscopy time 6 seconds. Cumulative dose 2.7 mGy. COMPARISON: None. FINDINGS: A single intraoperative fluoroscopic spot image of the right upper quadrant of the abdomen demonstrates cannulation of the cystic duct stump and opacification of the intrahepatic and extrahepatic biliary tree. There are no filling defects. There is normal passage of contrast into the duodenum. IMPRESSION: 1. Negative intraoperative cholangiogram.
--- NOTE | 2016-11-04 13:45 | OPERATIVE REPORT ---
DATE OF SURGERY: 11/04/2016 SURGEON: Niles Denny MD NIPPING MACHINE OPERATOR: Israel Moralez III, MD PREOPERATIVE DIAGNOSIS: 1. Gallstone pancreatitis POSTOPERATIVE DIAGNOSIS: 1. Gallstone pancreatitis PROCEDURE PERFORMED: 1. Laparoscopic cholecystectomy with cholangiography ANESTHESIA: General. INDICATIONS: The patient is a 76-year-old woman presenting with acute gallstone pancreatitis. She is not resolved chemically. SURGICAL TECHNIQUE: The patient was taken to the operating room, where a general anesthetic was administered and the patient prepped and draped in the usual sterile fashion. An orogastric tube, IV antibiotics, and sequential compression devices were in place. A local anesthetic of 0.5% Marcaine with epinephrine was used at each of the trocar sites. An intraumbilical incision was made and a Veress needle used to insufflate the abdominal cavity. A 10 mm trocar was passed and visualization obtained. Three additional cannulae were placed in the usual location. The gallbladder was elevated and the cystic duct isolated at the neck of the gallbladder. A clip was placed and the cystic artery also clipped. A fluoroscopic cholangiogram was carried out, which revealed free flow through the duodenum and no filling defects in the common duct. The cystic duct and cystic artery were doubly clipped and divided and the gallbladder stripped from the gallbladder fossa using electrocautery. It was placed in a specimen bag and pulled to the upper midline trocar site, where it was emptied and removed. Irrigation was used in the operative field and hemostasis was found to be complete. Free fluid was suctioned away. A small amount of additional Marcaine was instilled, gas was evacuated, and the midline trocar sites closed at the skin with interrupted subcuticular 4-0 Vicryl suture. Steri-Strips and dressings were placed at all sites. The patient left in good condition. No intraoperative complications were encountered.
== END 2016-11-04 17:00 | disposition home or self-care (01) | DRG 418 ==
LOC: ED SRH 23:05 → CC SRH 11-02 01:05 → TRANS SRH 11-02 01:05 → CC SRH 11-02 02:09
PROVIDERS: Surgery; ADMIT Internal Medicine
PROC: BF101ZZ Fluoroscopy of Bile Ducts using Low Osmolar Contrast (ICD-10-PCS; principal; 2016-11-04 12:00)
PROC: 0FT44ZZ Resection of Gallbladder, Percutaneous Endoscopic Approach (ICD-10-PCS; principal; 2016-11-04 12:00)
DX: K85.10 Biliary acute pancreatitis without necrosis or infection (principal); K80.10 Calculus of gallbladder with chronic cholecystitis without obstruction; K21.9 Gastro-esophageal reflux disease without esophagitis; G47.33 Obstructive sleep apnea (adult) (pediatric); I10 Essential (primary) hypertension; E83.42 Hypomagnesemia; I35.0 Nonrheumatic aortic (valve) stenosis
CPT/HCPCS: 50002; 60001; 70002; 80102; 80212; 80248; 82790; 82794; 82807; 83338; 83339; 83348; 83587; 83920; 83937; 83982; 84038; 84044; 90004; 90074; 90100; 90148; 90469; 90616; 91295; 91320; 91672; 92132; 92235; 92530; 92610; 92690; 92720; 92760; 92761; 92762; 92763; 92764; 92765; 92766; 92767; 95059; 95061